=== PATIENT | female | born 1965 | race Caucasian/White ===

== ENCOUNTER 2023-11-23 15:46 | Emergency (ER) | payer BC ==
[~2023-11-23] VITALS: Ht 165.1 cm; Wt 80.3 kg
[2023-11-23 16:49] LABS: BASO % 0.7 % (0.0-1.0); EOS # 0.4 10^3/uL (0.0-0.5); EOS % 6.7 % (0.0-3.0); HEMOGLOBIN 13.8 g/dl (12.0-15.5); LYMPH # 2.1 10^3/uL (1.5-5.0); MEAN CORPUSCULAR HEMOGLOBIN 30.3 pg (27.0-33.0); MEAN CORPUSCULAR HGB CONC 33.7 g/dl (32.0-36.5); MEAN CORPUSCULAR VOLUME 89.9 fl (80.0-96.0); MONO # 0.3 10^3/uL (0.0-0.8); MONO % 5.6 % (2.0-8.0); NEUTROPHILS # 2.8 10^3/uL (1.5-8.5); NEUTROPHILS % 49.6 % (36.0-66.0); PLATELET COUNT, AUTOMATED 243 10^3/uL (150-450); RED BLOOD COUNT 4.56 10^6/uL (4.00-5.40); WHITE BLOOD COUNT 5.5 10^3/uL (4.0-10.0)
[2023-11-23 17:23] LABS: ALBUMIN 3.9 G/DL (3.2-5.2); ALKALINE PHOSPHATASE 49 U/L (46-116); ALT/SGPT 22 U/L (7.0-40); AST/SGOT 15 U/L (<34); BILIRUBIN,DIRECT < 0.1 MG/DL (<0.4); BILIRUBIN,TOTAL 0.2 MG/DL (0.3-1.2); BLOOD UREA NITROGEN 23 MG/DL (9-23); CALCIUM LEVEL 8.9 MG/DL (8.3-10.6); CARBON DIOXIDE LEVEL 26 MMOL/L (20-31); CHLORIDE LEVEL 111 MMOL/L (98-107); CK-MB VALUE MASS 2.5 NG/ML (<3.6); CREATININE FOR GFR 0.89 MG/DL (0.55-1.30); GLOMERULAR FILTRATION RATE > 60.0 (>45); GLUCOSE, FASTING 83 MG/DL (74-106); POTASSIUM SERUM 4.1 MMOL/L (3.5-5.1); SODIUM LEVEL 143 MMOL/L (136-145); TOTAL PROTEIN 6.8 G/DL (5.7-8.2)
[2023-11-23 17:24] LABS: CPK CREATINE PHOSPHOKINASE 228 U/L (34-145); MB/CK RELATIVE INDEX 1.09 (< OR =4)
[2023-11-23] MEDS: ASPIRIN 81MG CHEW TABLET PO ONE (17:46)
[2023-11-23] MEDS: PANTOPRAZOLE 40MG VIAL IV ONE (17:47)
[2023-11-23 18:17] LABS: CK-MB VALUE MASS 2.4 NG/ML (<3.6)
[2023-11-23 18:25] LABS: MB/CK RELATIVE INDEX 1.13 (< OR =4)
[2023-11-23 19:17] VITALS: BP 135/77; TEMP 98.1; O2SAT 95
== END 2023-11-23 19:27 | disposition home or self-care (01) ==
LOC: M ED 15:46
DX: M94.0 Chondrocostal junction syndrome [Tietze] (principal); K21.9 Gastro-esophageal reflux disease without esophagitis; Z88.8 Allergy status to other drugs, medicaments and biological substances
CPT/HCPCS: 71045; 80048; 80076; 82550; 82553; 84484; 85025; 85730; 93005; 96374; 99284; C9113

== ENCOUNTER → 2024-01-02 | Outpatient (CLI) | payer BC | LOC: M WUC 14:20 | PROVIDERS: ATTEND Nurse Practitioner Adult Health | DX: M25.551 Pain in right hip (principal) ==

== ENCOUNTER → 2024-04-16 | Outpatient (CLI) | payer BC | LOC: M WUC 08:46 | PROVIDERS: ATTEND Anesthesiology Pain Medicine | DX: G54.8 Other nerve root and plexus disorders (principal); G89.29 Other chronic pain ==